=== PATIENT | female | born 2005 | race African-American/Black ===

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

== ENCOUNTER 2023-05-28 17:48 | Emergency (ER) | payer BC ==
--- NOTE | 2023-05-28 19:09 | EDPHYS ---
Physician Documentation [facility] Name: Seth Pino Age: 18 yrs Sex: Female : 2005 Arrival Date: 05/28/2023 Time: 17:48 Bed [id number] Private MD: ED Physician Kyaw Cruz HPI: 05/27 18:23 This 18 yrs old Black Female presents to ER via Ambulatory with complaints of High ms3 Blood Pressure, Headache. 18:23 18-year-old female with no past medical history presents to the emergency department ms3 for headache that has been ongoing for 2 weeks. Patient states she typically has headaches however they typically do not last this long. Patient rates her headache a 9/10 and states the pain was located in the frontal region and now is located in the back of her head. Patient denies fevers, chills, nausea, vomiting. Patient denies any alleviating or inciting factors. 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 - Social history:: Smoking status: Patient denies any tobacco usage or history of. ROS: 18:23 Constitutional: Negative for fever, and chills. Neck: Negative for injury, pain, and ms3 swelling, Cardiovascular: Negative for chest pain, and palpitations. Respiratory: Negative for shortness of breath, cough, wheezing, and pleuritic chest pain, Abdomen/GI: Negative for abdominal pain, nausea, vomiting, diarrhea, and constipation, MS/Extremity: Negative for injury and deformity, 18:23 Neuro: Positive for headache, Exam: 18:23 Constitutional: This is a well developed, well nourished patient who is awake, alert, ms3 and in no acute distress. Chest/axilla: Normal chest wall appearance and motion. Nontender with no deformity. Cardiovascular: Regular rate and rhythm with a normal S1 and S2. No gallops, murmurs, or rubs. Normal PMI, no JVD. No pulse deficits. Respiratory: Lungs have equal breath sounds bilaterally, clear to auscultation and percussion. No rales, rhonchi or wheezes noted. No increased work of breathing, no retractions or nasal flaring. Abdomen/GI: Soft, non-tender, with normal bowel sounds. No distension or tympany. No guarding or rebound. No evidence of tenderness throughout. Skin: Warm, dry with normal turgor. Normal color with no rashes, no lesions, and no evidence of cellulitis. 18:23 Neuro: Orientation: is normal, Mentation: is normal, Memory: is normal, Cranial nerves: CN I not tested, CN II- XII are normal as tested, Cerebellar function: is grossly normal, normal finger to nose testing, Motor: is normal, Sensation: is normal, no obvious gross deficits, Gait: is steady, at a normal pace, Vital Signs: 18:08 BP 115 / 74; Pulse 74; Resp 18 S; Temp 98.1(O); Pulse Ox 100% on R/A; Weight 54.43 kg as6 (R); Height 5 ft. 3 in. (R); Pain 9/10; 18:08 Body Mass Index 21.26 (54.43 kg, 160.02 cm) as6 18:08 Pain Scale: Adult as6 MDM: 18:35 Patient medically screened. ms3 19:09 Differential diagnosis: Tension POOLE. Data reviewed: vital signs, nurses notes, and as a ms3 result, I will discharge patient. I considered the following discharge prescriptions or medication management in the emergency department Patient left prior to receiving medications for headache. Counseling: I had a detailed discussion with the patient and/or guardian regarding. Counseling: I had a detailed discussion with the patient and/or guardian regarding the historical points, exam findings, and any diagnostic results supporting the discharge/admit diagnosis, Discussed treatment plan with patient. Patient left prior to receiving medications for headache. Administered Medications: 19:18 Not Given (Patient Refused): [id number] mg IVP once; over 1 to 2 minutes as6 19:18 Not Given (Patient Refused): [id number] mg IVP once as6 19:18 Not Given (Patient Refused): Decadron - [id number] mg IVP once as6 19:18 Not Given (Patient Refused): ns 0.9% 1000 ml IV at 1 bolus Per protocol; 1000 mL bolus as6 Disposition Summary: 05/28/23 19:08 Discharge Ordered Notes: Location: Home ms3 Condition: Stable ms3 Diagnosis - Headache ms3 Followup: ms3 - With: Errol Bazzi MD - When: 2 - 3 days - Reason: Recheck today's complaints Discharge Instructions: - Discharge Summary Sheet ms3 - General Headache Without Cause ms3 Forms: - Medication Reconciliation Form ms3 - Thank You Letter ms3 - Antibiotic Education ms3 - Prescription Opioid Use ms3 - Patient Portal Instructions ms3 - Leadership Thank You Letter ms3 Signatures: Kyaw Cruz DO DO ms3 Erik Christianson, RN RN as6
--- NOTE | 2023-05-28 19:09 | ER ---
Nurse's Notes [facility] Name: Seth Pino Age: 18 yrs Sex: Female : 2005 Arrival Date: 05/28/2023 Time: 17:48 Bed [id number] Private MD: Diagnosis: Headache Presentation: 05/27 18:09 Chief complaint: Patient states: headache x1 week and was worried that her blood as6 pressure was high. Coronavirus screen: At this time, the client does not indicate any symptoms associated with coronavirus-19. Ebola Screen: No symptoms or risks identified at this time. Initial Sepsis Screen: Does the patient meet any 2 criteria? No. Patient's initial sepsis screen is negative. Does the patient have a suspected source of infection? No. Patient's initial sepsis screen is negative. Risk Assessment: Do you want to hurt yourself or someone else? Patient reports no desire to harm self or others. Onset of symptoms was May 21, 2023. 18:09 Acuity: LOVELY 4 as6 18:09 Method Of Arrival: Ambulatory as6 Triage Assessment: 18:09 General: Appears in no apparent distress. Behavior is calm, cooperative. Pain: as6 Complains of pain in head. Neuro: Reports headache. 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 - Social history:: Smoking status: Patient denies any tobacco usage or history of. Screenin:18 [facility] ED Fall Risk Assessment (Adult) History of falling in the last 3 months, as6 including since admission No falls in past 3 months (0 pts) Confusion or Disorientation No (0 pts) Intoxicated or Sedated No (0 pts) Impaired Gait No (0 pts) Mobility Assist Device Used No (0 pt) Altered Elimination No (0 pt) Score/Fall Risk Level 0 - 2 = Low Risk Oriented to surroundings, Maintained a safe environment, Educated pt \T\ family on fall prevention, incl call for assistance when getting out of bed, Assessed \T\ reinforced patient's understanding of fall precautions, Hourly rounding (assess needs \T\ fall precautionary measures) done. Abuse screen: Denies threats or abuse. Denies injuries from another. Nutritional screening: No deficits noted. Tuberculosis screening: No symptoms or risk factors identified. Vital Signs: 18:08 BP 115 / 74; Pulse 74; Resp 18 S; Temp 98.1(O); Pulse Ox 100% on R/A; Weight 54.43 kg as6 (R); Height 5 ft. 3 in. (R); Pain 9/10; 18:08 Body Mass Index 21.26 (54.43 kg, 160.02 cm) as6 18:08 Pain Scale: Adult as6 ED Course: 17:51 Patient arrived in ED. im 17:53 Kyaw Cruz DO is Attending Physician. ms3 18:08 Arm band placed on. as6 18:10 Triage completed. as6 19:08 Errol Bazzi MD is Referral Physician. ms3 19:18 Patient has correct armband on for positive identification. Provided Education on: as6 parameters for normal BP. 19:19 Patient's name was called from ER lobby. No response. Unable to locate patient. Will as6 disposition as left without being seen by a provider. 19:19 No provider procedures requiring assistance completed. Patient did not have IV access as6 during this emergency room visit. Administered Medications: 19:18 Not Given (Patient Refused): [id number] mg IVP once; over 1 to 2 minutes as6 19:18 Not Given (Patient Refused): hvbbxnebveelswv45 mg IVP once as6 19:18 Not Given (Patient Refused): Decadron - [id number] mg IVP once as6 19:18 Not Given (Patient Refused): ns 0.9% 1000 ml IV at 1 bolus Per protocol; 1000 mL bolus as6 Medication: 19:18 VIS not applicable for this client. as6 Outcome: 19:08 Discharge ordered by . ms3 19:19 Discharged to home ambulatory, as6 19:19 Condition: stable 19:19 Discharge instructions given to pt left before receiving discharge paperwork 19:20 Patient left the ED. as6 Signatures: Kyaw Cruz DO DO ms3 Erik Christianson, RN RN as6 Leyla Ortega im
[2023-05-28 20:19] VITALS: BP 115/74; TEMP 98.1; O2SAT 100
== END 2023-05-28 19:20 | disposition home or self-care (01) ==
LOC: ER 17:48
DX: R51.9 Headache, unspecified (principal)
CPT/HCPCS: 99282

== ENCOUNTER 2023-08-02 18:46 | Emergency (ER) | payer BC, OTHER ==
[2023-08-02] MEDS ORDERED: ACETAMINOPHEN 500 MG TAB ONE (19:35)
[2023-08-02] MEDS ORDERED: NA CHLORIDE 0.9% 1,000 ML ONE (19:35)
[2023-08-02 19:56] LABS: Albumin 3.7 g/dL (3.4-5.0); Anion Gap 8.5 mEq/L (5.0-15.0); Bilirubin Total 0.2 mg/dL (0.2-1.0); Globulin 3.7 g/dL (2.3-3.5); Potassium 3.5 mEq/L (3.5-5.1); Protein, Total 7.4 g/dL (6.4-8.2)
[2023-08-02 20:12] LABS: Absolute Lymphocytes (CBC) 2.1 K/uL (0.7-4.9); Absolute Monocytes 0.3 K/uL (0.1-1.3); Absolute Neutrophil 3.2 K/uL (1.8-8.0); Basophils % 0.2 % (0-1.3); Eosinophils % 0.3 % (0-4.4); Hematocrit 30.9 % (36.0-45.0); Hemoglobin 10.3 g/dL (12.0-15.0); Lymphocytes % 37.8 % (15.3-44.8); MCH 30.6 pg (27.0-35.0); MCHC 33.1 g/dL (32.0-36.0); MCV 92.4 fL (80-100); MPV 7.7 fL (7.6-11.3); Monocytes % 5.6 % (3.3-12.3); Neutrophils % 56.1 % (41.7-73.7); Nucleated Red Blood Cells % 0.1 % (0-0); Platelets 328 thou/uL (152-406); RBC Red Blood Cell Count 3.35 M/uL (3.86-4.86); Red Cell Distribution Width 14.6 % (12.1-15.2)
--- NOTE | 2023-08-02 21:00 | RAD REPORT ---
EXAM DESCRIPTION: CT - Head Brain Wo Cont - 08/02/2023 8:23 pm CLINICAL HISTORY: Seizure COMPARISON: 2022 TECHNIQUE: Computed axial tomography of the head was obtained. IV contrast was not requested. All CT scans are performed using dose optimization technique as appropriate and may include automated exposure control or mA/KV adjustment according to patient size. FINDINGS: An intracranial bleed is not seen The ventricles are normal in caliber No significant hypodense areas within the brain visualized No extra-axial fluid collection is noted. Fluid within the sinuses/ mastoids is not seen IMPRESSION: No acute intracranial abnormality is seen If patient's symptoms persist MRI of the brain would be recommended
[2023-08-02 21:02] LABS: Specific Gravity 1.007 (1.005-1.030); Sqamous Epithelial <5 /HPF (None Seen); Urine Bacteria <20 /HPF (<20); Urine Bilirubin NEGATIVE (Negative); Urine Blood 2+ (Negative); Urine Clarity Clear (Clear); Urine Color Colorless (Yellow); Urine Crystals Unidentified Few /HPF (None Seen); Urine Culture Reflex Order NOT NEEDED; Urine Glucose NEGATIVE (Negative); Urine Ketones NEGATIVE (Negative); Urine Microscopic Reflex YN ORDER UMIC; Urine Nitrite NEGATIVE (Negative); Urine Protein NEGATIVE (Negative); Urine RBC <5 /HPF (None Seen); Urine Urobilinogen Normal (Normal); Urine WBC <5 /HPF (<5); Urine Yeast (Budding) Trace /HPF (None Seen); Urine pH 7.5 (5.0-7.0)
[2023-08-02 21:09] LABS: Barbiturates NEGATIVE (NEGATIVE); Benzodiazepines NEGATIVE (NEGATIVE); Cocaine NEGATIVE (NEGATIVE); METHAMPHETAM NEGATIVE (NEGATIVE); Methadone NEGATIVE (NEGATIVE); Opiates NEGATIVE (NEGATIVE); Phencyclidine NEGATIVE (NEGATIVE); THC Cannibis NEGATIVE (NEGATIVE)
--- NOTE | 2023-08-02 21:33 | ER ---
Nurse's Notes [facility] Name: Seth Pino Age: 18 yrs Sex: Female : 2005 Arrival Date: 08/02/2023 Time: 18:46 Bed 4 Private MD: Diagnosis: Other seizures Presentation: 08/01 18:49 Chief complaint: EMS states: toned out for seizure. Pt reports having headache today - ld1 hx of seizures, not medicated. Coronavirus screen: At this time, the client does not indicate any symptoms associated with coronavirus-19. Ebola Screen: No symptoms or risks identified at this time. Initial Sepsis Screen: Does the patient meet any 2 criteria? No. Patient's initial sepsis screen is negative. Does the patient have a suspected source of infection? No. Patient's initial sepsis screen is negative. Initial Sepsis Screen: Does the patient meet any 2 criteria?. Initial Sepsis Screen: Does the patient meet any 2 criteria?. Risk Assessment: Do you want to hurt yourself or someone else? Patient reports no desire to harm self or others. Onset of symptoms was August 02, 2023. 18:49 Method Of Arrival: EMS: [facility] ld1 18:49 Acuity: LOVELY 3 ld1 Triage Assessment: 18:50 General: Appears in no apparent distress. comfortable, Behavior is calm, cooperative, ld1 appropriate for age. Pain: Denies pain. EENT: No signs and/or symptoms were reported regarding the EENT system. Neuro: Level of Consciousness is awake, alert, obeys commands, Oriented to person, place, time, situation. Neuro:. Cardiovascular: Capillary refill < 3 seconds Patient's skin is warm and dry. Cardiovascular: Rhythm is sinus rhythm. Respiratory: Airway is patent Respiratory effort is even, unlabored. GI: Abdomen is flat, non-distended. : No signs and/or symptoms were reported regarding the genitourinary system. Derm: No signs and/or symptoms reported regarding the dermatologic system. Musculoskeletal: No signs and/or symptoms reported regarding the musculoskeletal system. 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 - Infectious Disease History:: Denies. - Social history:: Smoking status: Patient denies any tobacco usage or history of. Screenin:05 [facility] ED Fall Risk Assessment (Adult) History of falling in the last 3 months, km8 including since admission No falls in past 3 months (0 pts) Confusion or Disorientation No (0 pts) Intoxicated or Sedated No (0 pts) Impaired Gait No (0 pts) Mobility Assist Device Used No (0 pt) Altered Elimination No (0 pt) Score/Fall Risk Level 0 - 2 = Low Risk Oriented to surroundings, Maintained a safe environment, Educated pt \T\ family on fall prevention, incl call for assistance when getting out of bed, Assessed \T\ reinforced patient's understanding of fall precautions. Abuse screen: Denies threats or abuse. Denies injuries from another. Nutritional screening: No deficits noted. Tuberculosis screening: No symptoms or risk factors identified. Assessment: 19:05 Reassessment: Patient appears in no apparent distress at this time. Patient and/or 8 family updated on plan of care and expected duration. Pain level reassessed. Patient is alert, oriented x 3, equal unlabored respirations, skin warm/dry/pink. General: Appears in no apparent distress. comfortable, Behavior is calm, cooperative, appropriate for age. Pain: Complains of pain in head Pain currently is 6 out of 10 on a pain scale. Quality of pain is described as aching. Neuro: Level of Consciousness is awake, alert, obeys commands, Oriented to person, place, time, situation. Cardiovascular: Denies chest pain, shortness of breath, Patient's skin is warm and dry. Respiratory: Airway is patent Respiratory effort is even, unlabored, Respiratory pattern is regular, symmetrical. GI: No signs and/or symptoms were reported involving the gastrointestinal system. : No signs and/or symptoms were reported regarding the genitourinary system. EENT: No signs and/or symptoms were reported regarding the EENT system. Derm: No signs and/or symptoms reported regarding the dermatologic system. Skin is intact, is healthy with good turgor, Skin is dry, Skin is pink, warm \T\ dry. normal, Skin temperature is warm. Musculoskeletal: No signs and/or symptoms reported regarding the musculoskeletal system. Range of motion: intact in all extremities. 20:15 Reassessment: Patient appears in no apparent distress at this time. No changes from km8 previously documented assessment. Patient and/or family updated on plan of care and expected duration. Pain level reassessed. Patient is alert, oriented x 3, equal unlabored respirations, skin warm/dry/pink. 21:15 Reassessment: Patient appears in no apparent distress at this time. No changes from km8 previously documented assessment. Patient and/or family updated on plan of care and expected duration. Pain level reassessed. Patient is alert, oriented x 3, equal unlabored respirations, skin warm/dry/pink. Vital Signs: 18:49 BP 108 / 69; Pulse 97; Resp 18; Temp 97.9(TE); Pulse Ox 100% on R/A; Weight 58.06 kg; ld1 Height 5 ft. 4 in. ; Pain 0/10; 20:00 BP 96 / 61; Pulse 67; Resp 16; Pulse Ox 100% on R/A; km8 21:30 BP 108 / 76; Pulse 70; Resp 16; Pulse Ox 100% on R/A; km8 18:49 Body Mass Index 21.97 (58.06 kg, 162.56 cm) ld1 18:49 Pain Scale: Adult ld1 [place] Coma Score: 18:50 Eye Response: spontaneous(4). Motor Response: obeys commands(6). Verbal Response: ld1 oriented(5). Total: 15. 19:05 Eye Response: spontaneous(4). Motor Response: obeys commands(6). Verbal Response: km8 oriented(5). Total: 15. ED Course: 18:49 Patient arrived in ED. ld1 18:50 Triage completed. ld1 18:50 Arm band placed on right wrist. ld1 18:53 Lachelle Jackson FNP-C is [facility]. kb 18:53 Rajinder Durham MD is Attending Physician. kb 19:05 Patient has correct armband on for positive identification. Call light in reach. Side km8 rails up X2. Seizure precautions initiated. Provided Education on: call light use. Pulse ox on. NIBP on. Warm blanket given. 19:05 Initial lab(s) drawn, by me, sent to lab. Maintain EMS IV. Dressing intact. Good blood km8 return noted. Site clean \T\ dry. Gauge \T\ site: 18 gauge left AC. 19:09 Cal, So, RN is Primary Nurse. km8 19:34 CMP Sent. km8 19:34 Test, Serum Sent. km8 20:24 CT Head Brain wo Cont In Process Unspecified. EDMS 20:49 Test, Urine Sent. km8 20:49 Urinalysis w/ reflexes Sent. km8 20:49 Urine Drug Screen Sent. km8 20:49 Urine collected: clean catch specimen, clear. km8 21:46 No provider procedures requiring assistance completed. IV discontinued, intact, km8 bleeding controlled, No redness/swelling at site. Pressure dressing applied. Administered Medications: 19:39 Drug: NS 0.9% IV 1000 ml IV at 1000 ml once Route: IV; Rate: 1000 ml; Site: left [facility] antecubital; 21:46 Follow up: IV Status: Completed infusion; IV Intake: 1000ml km8 19:39 Drug: Acetaminophen PO 1000 mg PO once Route: PO; km8 21:46 Follow up: Response: No adverse reaction km8 Medication: 19:05 VIS not applicable for this client. km8 Intake: 21:46 IV: 1000ml; Total: 1000ml. km8 Outcome: 21:33 Discharge ordered by MD. thurman 21:53 Discharged to home ambulatory, with family, km8 21:53 Condition: good 21:53 Discharge instructions given to patient, family, Instructed on discharge instructions, follow up and referral plans. Demonstrated understanding of instructions, follow-up care, 21:53 Patient left the ED. km8 Signatures: Dispatcher [employer] EDLachelle Chu, MARIO GIANGP-Isaura Gaxiola RN RN ld1 So Mccall, RN RN km8
--- NOTE | 2023-08-02 21:33 | EDPHYS ---
Physician Documentation [facility] Name: Seth Pino Age: 18 yrs Sex: Female : 2005 Arrival Date: 08/02/2023 Time: 18:46 Bed 4 Private MD: ED Physician Rajinder Durham HPI: 08/02 00:39 This 18 yrs old Black Female presents to ER via EMS with complaints of Seizure. kb 00:39 Pt is a 18 year old female who presents after a seizure. Mother states pt was asking kb her to look at her phone and then she had a seizure that lasted a few seconds. EMS reports pt was postictle upon their arrival but has since returned to normal. Mother states pt had a previous seizure 6 months ago, but they did not follow up with neurology. HOME ADVISOR: 08/01 21:46 Not km8 Historical: - Allergies: 18:50 No Known Allergies; ld1 - PMHx: 18:50 Seizure; ld1 - Immunization history:: Adult Immunizations up to date. - Infectious Disease History:: Denies. - Social history:: Smoking status: Patient denies any tobacco usage or history of. ROS: 18:53 Constitutional: As per HPI kb Exam: 08/02 00:35 Constitutional: This is a well developed, well nourished patient who is awake, alert, kb and in no acute distress. Head/Face: Normocephalic, atraumatic. Eyes: Pupils equal round and reactive to light, extra-ocular motions intact. Lids and lashes normal. Conjunctiva and sclera are non-icteric and not injected. Cornea within normal limits. Periorbital areas with no swelling, redness, or edema. ENT: Moist Mucous membranes Cardiovascular: Regular rate Respiratory: Respirations even and unlabored. No increased work of breathing. Talking in full sentences Abdomen/GI: Soft, non-tender. No distention Skin: Warm, dry with normal turgor. Normal color. MS/ Extremity: Pulses equal, no cyanosis. Neurovascular intact. Full, normal range of motion. Neuro: Awake and alert, GCS 15, oriented to person, place, time, and situation. Moves all extremities. Normal gait. Vital Signs: 08/01 18:49 BP 108 / 69; Pulse 97; Resp 18; Temp 97.9(TE); Pulse Ox 100% on R/A; Weight 58.06 kg; ld1 Height 5 ft. 4 in. ; Pain 0/10; 20:00 BP 96 / 61; Pulse 67; Resp 16; Pulse Ox 100% on R/A; km8 21:30 BP 108 / 76; Pulse 70; Resp 16; Pulse Ox 100% on R/A; km8 18:49 Body Mass Index 21.97 (58.06 kg, 162.56 cm) ld1 18:49 Pain Scale: Adult ld1 [place] Coma Score: 18:50 Eye Response: spontaneous(4). Motor Response: obeys commands(6). Verbal Response: ld1 oriented(5). Total: 15. 19:05 Eye Response: spontaneous(4). Motor Response: obeys commands(6). Verbal Response: km8 oriented(5). Total: 15. MDM: 18:54 Patient medically screened. kb 08/02 00:35 Differential diagnosis: cardiac arrhythmia, seizure. Data reviewed: vital signs, nurses kb notes. Consideration of Admission/Observation Escalation of care including admission/observation considered. admission considered but pt is awake, alert and oriented x4 since arrival, has had no seizure activity. Pt and mother educated on diagnostic results and need for follow up with neurologist. Verbal understanding received. . Historians other than the Patient: EMS: [facility]. Parent: mother. Counseling: I had a detailed discussion with the patient and/or guardian regarding the historical points, exam findings, and any diagnostic results supporting the discharge/admit diagnosis, lab results, radiology results, the need for outpatient follow up, a neurologist, to return to the emergency department if symptoms worsen or persist or if there are any questions or concerns that arise at home. 08/01 18:54 Order name: CBC with Diff; Complete Time: 20:27 kb 08/01 18:54 Order name: CMP; Complete Time: 19:59 kb 08/01 18:54 Order name: Test, Urine; Complete Time: 21:13 kb 08/01 18:54 Order name: Urinalysis w/ reflexes; Complete Time: 21:13 kb 08/01 18:54 Order name: Urine Drug Screen; Complete Time: 21:13 kb 08/01 19:26 Order name: Test, Serum; Complete Time: 20:27 km8 08/01 18:54 Order name: CT Head Brain wo Cont; Complete Time: 21:13 kb 08/01 18:54 Order name: IV Start; Complete Time: 19:34 kb Administered Medications: 08/01 19:39 Drug: NS 0.9% IV 1000 ml IV at 1000 ml once Route: IV; Rate: 1000 ml; Site: left [facility] antecubital; 21:46 Follow up: IV Status: Completed infusion; IV Intake: 1000ml [facility] 19:39 Drug: Acetaminophen PO 1000 mg PO once Route: PO; [facility] 21:46 Follow up: Response: No adverse reaction [facility] Disposition Summary: 08/02/23 21:33 Discharge Ordered Notes: Dr Gill in [place]
Location: Home Condition: Stable kb Diagnosis - Other seizures kb Followup: kb - With: Emergency Department - When: As needed - Reason: Worsening of condition Followup: kb - With: Private Physician - When: 2 - 3 days - Reason: Recheck today's complaints, Continuance of care, Re-evaluation by your physician Discharge Instructions: - Discharge Summary Sheet kb - Seizure, Adult, [id number] kb Forms: - Medication Reconciliation Form kb - Antibiotic Education kb - Prescription Opioid Use kb - Patient Portal Instructions kb - Leadership Thank You Letter kb Signatures: Dispatcher [employer] EDLachelle Chu, FISHERIES DIRECTOR-C FISHERIES DIRECTOR-Isaura Gaxiola, RN RN ld1 So Mccall, RN RN km8 Corrections: (The following items were deleted from the chart) 18:54 18:54 CBC+H.LAB.BRZ ordered. EDMS EDMS 18:54 18:54 COMPREHENSIVE METABOLIC PANEL+C.LAB.BRZ ordered. EDMS EDMS 18:54 18:54 Test, Urine+UC.LAB.BRZ ordered. EDMS EDMS 18:54 18:54 Urinalysis+U.LAB.BRZ ordered. EDMS EDMS 18:54 18:54 URINE DRUG SCREEN+UC.LAB.BRZ ordered. EDMS EDMS
[2023-08-02 22:36] VITALS: BP 108/76; TEMP 97.9; O2SAT 100
== END 2023-08-02 21:53 | disposition home or self-care (01) ==
LOC: ER 18:46
DX: G40.89 Other seizures (principal)
CPT/HCPCS: 96361; 85025; 81001; 36415; 84703; 81025; 80053; 80307; 70450; 96360; 99284; J7030

== ENCOUNTER 2023-10-22 11:30 | Emergency (ER) | payer BC, OTHER ==
[2023-10-22] MEDS ORDERED: ACETAMINOPHEN 325 MG TABLET ONE (12:02)
[2023-10-22 12:08] LABS: Urine Bacteria <20 /HPF (<20); Urine Bilirubin NEGATIVE (Negative); Urine Blood 3+ (OVER) (Negative); Urine Clarity Extremely Turbid (Clear); Urine Color Light-Yellow (Yellow); Urine Culture Reflex Order NOT NEEDED; Urine Glucose NEGATIVE (Negative); Urine Ketones NEGATIVE (Negative); Urine Microscopic Reflex YN ORDER UMIC; Urine Mucus 3+ /HPF (None Seen); Urine Nitrite NEGATIVE (Negative); Urine Protein TRACE (Negative); Urine RBC >50 /HPF (None Seen); Urine Urobilinogen Normal (Normal); Urine WBC <5 /HPF (<5)
[2023-10-22 12:57] LABS: Absolute Lymphocytes (CBC) 1.7 K/uL (0.7-4.9); Absolute Monocytes 0.2 K/uL (0.1-1.3); Absolute Neutrophil 0.9 K/uL (1.8-8.0); Basophils % 0.6 % (0-1.3); Eosinophils % 1.1 % (0-4.4); Hematocrit 33.5 % (36.0-45.0); Lymphocytes % 59.2 % (15.3-44.8); MCHC 32.9 g/dL (32.0-36.0); MCV 94.2 fL (80-100); MPV 7.3 fL (7.6-11.3); Monocytes % 7.2 % (3.3-12.3); Neutrophils % 31.9 % (41.7-73.7); Platelets 310 thou/uL (152-406); RBC Red Blood Cell Count 3.55 M/uL (3.86-4.86); Red Cell Distribution Width 13.3 % (12.1-15.2)
--- NOTE | 2023-10-22 13:00 | RAD REPORT ---
EXAM DESCRIPTION: US - Transvaginal OB - 10/22/2023 12:50 pm CLINICAL HISTORY: ABD CRAMPING, COMPARISON: <Comparisons> FINDINGS: A single gestational sac is seen within the uterus. The shape of the sac is within normal limits for gestational age. Mean sac diameter is 3 mm correlating to 5 weeks 0 days gestational age. No yolk sac or embryo seen. The maternal adnexa and ovaries are within normal limits. Normal Doppler blood flow was demonstrated to both ovaries. IMPRESSION: Findings are most suggestive of early IUP. Recommend follow-up sonography in 7-10 days w ith serial HCG measurements.
[2023-10-22 13:14] LABS: Anion Gap 6.8 mEq/L (5.0-15.0); Potassium 3.8 mEq/L (3.5-5.1)
[2023-10-22 13:31] LABS: Blood Morphology Comment NOTED (NOT SEEN); Hypochromasia 1+; Platelet Estimate ADEQ; White Blood Cell Scan OK (OK)
--- NOTE | 2023-10-22 14:10 | EDPHYS ---
Physician Documentation [facility] Name: Seth Pino Age: 18 yrs Sex: Female : 2005 Arrival Date: 10/22/2023 Time: 11:30 Bed 19 Private MD: ED Physician Andrey Georges HPI: 10/21 11:45 This 18 yrs old Black Female presents to ER via Ambulatory with complaints of Vaginal cp Bleeding, + Preg <12wks - vaginal cramping. 11:45 The patient presents to the emergency department with abdominal pain, of the right cp lower quadrant and left lower quadrant, that started today, described as crampy, vaginal bleeding, that is light, with clots. 11:45 course: care: none. cp 11:45 Previous pregnancies: the patient has never been . 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 - Infectious Disease History:: Denies. - Social history:: Smoking status: Patient denies any tobacco usage or history of. ROS: 11:50 : Positive for vaginal bleeding, cp 11:50 Constitutional: Negative for body aches, chills, fever, poor PO intake, cp 11:50 Respiratory: Negative for cough, shortness of breath, wheezing, 11:50 Abdomen/GI: Positive for abdominal cramps, Negative for nausea, vomiting, diarrhea, constipation, Exam: 11:55 Constitutional: The patient appears in no acute distress, alert, awake, comfortable, cp non-toxic, well developed, well nourished, 11:55 Head/Face: Normocephalic, atraumatic. cp 11:55 Eyes: Periorbital structures: appear normal, Conjunctiva: normal, no exudate, no injection, Sclera: no appreciated abnormality, Lids and lashes: appear normal, bilaterally, 11:55 ENT: External ear(s): are unremarkable, Nose: is normal, Mouth: Lips: moist, Oral mucosa: pink and intact, moist, Posterior pharynx: is normal, airway is patent, no erythema, no exudate, 11:55 Chest/axilla: Inspection: 11:55 Cardiovascular: Rate: normal, Rhythm: regular, 11:55 Respiratory: the patient does not display signs of respiratory distress, Respirations: normal, no use of accessory muscles, no retractions, labored breathing, is not present, Breath sounds: are clear throughout, no decreased breath sounds, no stridor, no wheezing, 11:55 Abdomen/GI: Inspection: abdomen appears normal, Bowel sounds: active, all quadrants, Palpation: soft, in all quadrants, mild abdominal tenderness, in the right lower quadrant and left lower quadrant, rebound tenderness, is not appreciated, involuntary guarding, is not appreciated, 11:55 Back: CVA tenderness, is absent, Vital Signs: 11:41 BP 113 / 79; Pulse 70; Resp 16; Temp 97.9; Pulse Ox 100% on R/A; Weight 57.61 kg; ll1 Height 5 ft. 3 in. ; Pain 6/10; 14:20 BP 110 / 72; Pulse 70; Resp 15 S; Pulse Ox 99% on R/A; kc6 11:41 Body Mass Index 22.50 (57.61 kg, 160.02 cm) ll1 11:41 Pain Scale: Adult ll1 MDM: 11:36 Patient medically screened. cp 14:10 Data reviewed: vital signs, nurses notes, lab test result(s), radiologic studies, cp ultrasound. 14:10 Differential diagnosis: STD, ectopic . I considered the following discharge cp prescriptions or medication management in the emergency department Medications were administered in the Emergency Department. See MAR. Counseling: I had a detailed discussion with the patient and/or guardian regarding the historical points, exam findings, and any diagnostic results supporting the discharge/admit diagnosis, lab results, radiology results, the need for outpatient follow up, an OB/Gyne specialist, to return to the emergency department if symptoms worsen or persist or if there are any questions or concerns that arise at home. Response to treatment: the patient's symptoms have mildly improved after treatment, and as a result, I will discharge patient. 10/21 11:48 Order name: Abo/rh Typing; Complete Time: 13:59 cp 10/21 14:01 Interpretation: Reviewed. 10/21 11:48 Order name: Basic Metabolic Panel; Complete Time: 13:59 cp 10/21 13:59 Interpretation: Normal except: CL 108; CRE 0.50. 10/21 11:48 Order name: CBC with Diff; Complete Time: 13:59 cp 10/21 13:04 Interpretation: Normal except: WBC 2.90; RBC 3.55; HGB 11.0; HCT 33.5; MPV 7.3; [place]% cp 31.9; LYM% 59.2; NEUT A 0.9. 10/21 11:48 Order name: Test, Urine; Complete Time: 13:04 cp 10/21 11:48 Order name: Quantitative Hcg; Complete Time: 13:59 cp 10/21 14:00 Interpretation: HCGQ 725; Reviewed. 10/21 11:48 Order name: Urinalysis w/ reflexes; Complete Time: 13:04 cp 10/21 14:00 Interpretation: Normal except: [facility] Extremely Turbid; UBLD 3+ (OVER); UPROT TRACE; URBC cp >50; MUCUS 3+. 10/21 13:06 Order name: CBC Smear Scan; Complete Time: 13:59 EDMS 10/21 14:01 Interpretation: Reviewed. 10/21 11:48 Order name: US Transvaginal Ob; Complete Time: 13:04 10/21 14:03 Interpretation: Report reviewed. 10/21 11:48 Order name: IV Saline Lock; Complete Time: 12:48 cp 10/21 11:48 Order name: Labs collected and sent; Complete Time: 12:48 cp 10/21 11:48 Order name: NPO; Complete Time: 11:49 cp Administered Medications: 12:48 Drug: Acetaminophen PO 650 mg PO once Route: PO; kc6 Disposition Summary: 10/22/23 14:10 Discharge Ordered Notes: Location: Home cp Problem: new cp Symptoms: have improved cp Condition: Stable cp Diagnosis - Threatened cp Followup: cp - With: Private Physician - When: 48 Hours - Reason: Repeat Beta-HCG (48 Hours) Discharge Instructions: - Discharge Summary Sheet cp - Abdominal Pain During cp - Care cp - Threatened Miscarriage cp - Vaginal Bleeding During , First Trimester cp - Activity Restriction During cp Forms: - Medication Reconciliation Form cp - Antibiotic Education cp - Prescription Opioid Use cp - Patient Portal Instructions cp - Leadership Thank You Letter cp Prescriptions: - 95-iron [id number] - take 1 tablet ORAL route once daily; 60 tablet; Refills: 0, Product Selection cp Permitted Addendum: 11/02/2023 04:45 Co-signature as Attending Physician, Andrey Georges MD I agree with the assessment and c moore plan of care. Signatures: Dispatcher [employer] Andrey Wilhelm MD MD cha Page, Corey, PA PA Mark Walker RN RN ll1 Keely Perales RN RN kc6 Corrections: (The following items were deleted from the chart) 10/21 11:48 11:48 ABO/RH TYPING+BB.LAB.BRZ ordered. EDMS EDMS 11:48 11:48 BASIC METABOLIC PANEL+C.LAB.BRZ ordered. EDMS EDMS 11:48 11:48 CBC+H.LAB.BRZ ordered. EDMS EDMS 11:48 11:48 Test, Urine+UC.LAB.BRZ ordered. EDMS EDMS 11:48 11:48 QUANTITATIVE HCG+C.LAB.BRZ ordered. EDMS EDMS 11:48 11:48 Urinalysis+U.LAB.BRZ ordered. EDMS EDMS 11:48 11:48 Transvaginal Ob+US.RAD.BRZ ordered. EDMS EDMS
--- NOTE | 2023-10-22 14:10 | ER ---
Nurse's Notes [facility] Name: Seth Pino Age: 18 yrs Sex: Female : 2005 Arrival Date: 10/22/2023 Time: 11:30 Bed 19 Private MD: Diagnosis: Threatened Presentation: 10/21 11:41 Chief complaint: Patient states: G1, P0. Started vaginal bleeding yesterday, heavier ll1 today with small clots. About 3 weeks . Coronavirus screen: Client denies travel out of the [place] in the last 14 days. At this time, the client does not indicate any symptoms associated with coronavirus-19. Ebola Screen: Patient denies travel to an Ebola-affected area in the 21 days before illness onset. Initial Sepsis Screen: Does the patient meet any 2 criteria? No. Patient's initial sepsis screen is negative. Does the patient have a suspected source of infection? No. Patient's initial sepsis screen is negative. Risk Assessment: Do you want to hurt yourself or someone else? Patient reports no desire to harm self or others. Onset of symptoms was October 21, 2023. 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 - Infectious Disease History:: Denies. - Social history:: Smoking status: Patient denies any tobacco usage or history of. Screenin:45 [facility] ED Fall Risk Assessment (Adult) History of falling in the last 3 months, kc6 including since admission No falls in past 3 months (0 pts) Confusion or Disorientation No (0 pts) Intoxicated or Sedated No (0 pts) Impaired Gait No (0 pts) Mobility Assist Device Used No (0 pt) Altered Elimination No (0 pt) Score/Fall Risk Level 0 - 2 = Low Risk. Abuse screen: Denies threats or abuse. Denies injuries from another. Nutritional screening: No deficits noted. Tuberculosis screening: No symptoms or risk factors identified. Assessment: 11:45 General: Appears in no apparent distress. comfortable, well groomed, well developed, kc6 Behavior is calm, cooperative, appropriate for age. Pain: Complains of pain in left lower quadrant and right lower quadrant Quality of pain is described as crampy, dull. Neuro: Level of Consciousness is awake, alert, obeys commands, Oriented to person, place, time, situation, Appropriate for age. Cardiovascular: Capillary refill < 3 seconds. Respiratory: Airway is patent Trachea midline Respiratory effort is even, unlabored, Respiratory pattern is regular, symmetrical. GI: No signs and/or symptoms were reported involving the gastrointestinal system. : Urine is clear, Reports vaginal bleeding that is bright red, with clots, moderate flow, since yesterday. EENT: No signs and/or symptoms were reported regarding the EENT system. Derm: No signs and/or symptoms reported regarding the dermatologic system. Skin is intact, is healthy with good turgor, Skin is pink, warm \T\ dry. Musculoskeletal: No signs and/or symptoms reported regarding the musculoskeletal system. Circulation, motion, and sensation intact. Capillary refill < 3 seconds, Range of motion: intact in all extremities. 12:45 Reassessment: Patient appears in no apparent distress at this time. No changes from kc6 previously documented assessment. Patient and/or family updated on plan of care and expected duration. Pain level reassessed. Patient is alert, oriented x 3, equal unlabored respirations, skin warm/dry/pink. 13:34 Reassessment: Patient appears in no apparent distress at this time. No changes from kc6 previously documented assessment. Patient and/or family updated on plan of care and expected duration. Pain level reassessed. Patient is alert, oriented x 3, equal unlabored respirations, skin warm/dry/pink. 14:20 Reassessment: Patient appears in no apparent distress at this time. No changes from kc6 previously documented assessment. Patient and/or family updated on plan of care and expected duration. Pain level reassessed. Patient is alert, oriented x 3, equal unlabored respirations, skin warm/dry/pink. Patient states feeling better. Vital Signs: 11:41 BP 113 / 79; Pulse 70; Resp 16; Temp 97.9; Pulse Ox 100% on R/A; Weight 57.61 kg; ll1 Height 5 ft. 3 in. ; Pain 6/10; 14:20 BP 110 / 72; Pulse 70; Resp 15 S; Pulse Ox 99% on R/A; kc6 11:41 Body Mass Index 22.50 (57.61 kg, 160.02 cm) ll1 11:41 Pain Scale: Adult ll1 ED Course: 11:35 Patient arrived in ED. ra3 11:35 Andrey Ballesteros PA is PHCP. cp 11:35 Andrey Georges MD is Attending Physician. cp 11:36 Arm band placed on Patient placed in an exam room, on a stretcher. ll1 11:40 Keely Perales, SANDY is Primary Nurse. kc6 11:43 Triage completed. ll1 11:45 Patient has correct armband on for positive identification. Bed in low position. Call kc6 light in reach. Side rails up X 1. Pulse ox on. NIBP on. Door closed. Noise minimized. Lights dimmed. Pillow given. 12:48 Inserted saline lock: 20 gauge in right antecubital area, using aseptic technique. kc6 Blood collected. Flushed with 10 mL NS. 12:52 US Transvaginal Ob In Process Unspecified. EDMS 14:20 No provider procedures requiring assistance completed. IV discontinued, intact, kc6 bleeding controlled, No redness/swelling at site. Pressure dressing applied. Administered Medications: 12:48 Drug: Acetaminophen PO 650 mg PO once Route: PO; kc6 Medication: 14:21 VIS not applicable for this client. kc6 Outcome: 14:10 Discharge ordered by . cp 14:20 Discharged to home ambulatory, kc6 14:20 Condition: good 14:20 Discharge instructions given to patient, Instructed on discharge instructions, follow up and referral plans. medication usage, Demonstrated understanding of instructions, follow-up care, medications, Prescriptions given X 1, 14:21 Patient left the ED. kc6 Signatures: Dispatcher [employer] EDVA Andrey Ballesteros PA PA cp Lewis, Lynsay, RN RN ll1 Keely Perales RN RN kc6 Bernadette Frausto ra3
[2023-10-22 14:25] VITALS: TEMP 97.9
[2023-10-22 14:27] VITALS: BP 110/72; O2SAT 99
== END 2023-10-22 14:21 | disposition home or self-care (01) ==
LOC: ER 11:30
DX: O20.0 Threatened abortion (principal)
CPT/HCPCS: 36415; 76817; 80048; 81001; 81025; 84702; 85025; 86900; 86901; 99284

== ENCOUNTER 2023-10-22 21:53 | Emergency (ER) | payer BC, OTHER ==
--- NOTE | 2023-10-22 22:09 | ER ---
Nurse's Notes [facility] Name: Seth Pino Age: 18 yrs Sex: Female : 2005 Arrival Date: 10/22/2023 Time: 21:53 Bed IW1 Private MD: Diagnosis: Threatened ;Vaginal bleeding in , Spontaneous miscarriage Presentation: 10/21 22:00 Chief complaint: Patient states: Came earlier and they told me to come back if the pain vc1 gets worse. Coronavirus screen: Client denies travel out of the [place] in the last 14 days. At this time, the client does not indicate any symptoms associated with coronavirus-19. Ebola Screen: Patient negative for fever greater than or equal to 101.5 degrees Fahrenheit, and additional compatible Ebola Virus Disease symptoms Patient denies exposure to infectious person. Patient denies travel to an Ebola-affected area in the 21 days before illness onset. No symptoms or risks identified at this time. Initial Sepsis Screen: Does the patient meet any 2 criteria? No. Patient's initial sepsis screen is negative. Does the patient have a suspected source of infection? No. Patient's initial sepsis screen is negative. Risk Assessment: Do you want to hurt yourself or someone else? Patient reports no desire to harm self or others. Note 5 weeks and bleeding. Onset of symptoms was October 22, 2023. Care prior to arrival: None. Activity prior to arrival: None. Mechanism of Injury: No Mechanism of Injury. Transition of care: patient was not received from another setting of care. 22:00 Method Of Arrival: Ambulatory vc1 22:00 Acuity: LOVELY 4 vc1 Triage Assessment: 22:05 General: Behavior is. General: Appears in no apparent distress. comfortable, slender, vc1 Behavior is cooperative, crying. Pain: Complains of pain in left lower quadrant. EENT: No deficits noted. No signs and/or symptoms were reported regarding the EENT system. Neuro: Level of Consciousness is awake, alert, obeys commands, Oriented to person, place, time, situation, Appropriate for age. Cardiovascular: Capillary refill < 3 seconds Patient's skin is warm and dry. Respiratory: Airway is patent Respiratory effort is even, unlabored, Respiratory pattern is regular, symmetrical, Breath sounds are clear bilaterally. GI: Abdomen is flat, non-distended, Reports lower abdominal pain. : Reports vaginal bleeding that is heavy flow. Derm: Skin is intact, is healthy with good turgor, Skin is dry, Skin is normal, Skin temperature is warm. Musculoskeletal: No deficits noted. No signs and/or symptoms reported regarding the musculoskeletal system. 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 Screenin:04 [facility] ED Fall Risk Assessment (Adult) History of falling in the last 3 months, vc1 including since admission No falls in past 3 months (0 pts) Confusion or Disorientation No (0 pts) Intoxicated or Sedated No (0 pts) Impaired Gait No (0 pts) Mobility Assist Device Used No (0 pt) Altered Elimination No (0 pt) Score/Fall Risk Level 0 - 2 = Low Risk Oriented to surroundings, Maintained a safe environment, Educated pt \T\ family on fall prevention, incl call for assistance when getting out of bed. Abuse screen: Denies threats or abuse. Nutritional screening: No deficits noted. Tuberculosis screening: No symptoms or risk factors identified. Vital Signs: 22:00 BP 112 / 74; Pulse 84; Resp 16; Temp 97.4; Pulse Ox 100% ; Weight 57.61 kg; Height 5 vc1 ft. 3 in. ; 22:00 Body Mass Index 22.50 (57.61 kg, 160.02 cm) vc1 ED Course: 21:55 Patient arrived in ED. mr 21:56 Williams Cary MD is Attending Physician. sp4 22:02 Triage completed. vc1 22:05 Arm band placed on right wrist. vc1 22:11 Provided Education on: f/u in 2 days for repeat HCG. vc1 22:11 Patient has correct armband on for positive identification. Seen in triage. vc1 22:11 No provider procedures requiring assistance completed. Patient did not have IV access vc1 during this emergency room visit. Administered Medications: No medications were administered Medication: 22:05 VIS not applicable for this client. vc1 Outcome: 22:09 Discharge ordered by . sp4 22:11 Discharged to home ambulatory, vc1 22:11 Condition: good 22:11 Discharge instructions given to patient, Instructed on discharge instructions, follow up and referral plans. Demonstrated understanding of instructions, follow-up care, 22:12 Patient left the ED. vc1 Signatures: Robyn Vazquez Reg Reg mr Calcote, Vanessa, RN RN vc1 Williams Cary MD MD sp4
--- NOTE | 2023-10-22 22:09 | EDPHYS ---
Physician Documentation [facility] Name: Seth Pino Age: 18 yrs Sex: Female : 2005 Arrival Date: 10/22/2023 Time: 21:53 Bed IW1 Private MD: ED Physician Williams Cary HPI: 10/21 21:56 This 18 yrs old Black Female presents to ER via Unassigned with complaints of 5wks sp4 , Abdominal Pain. 10/22 07:57 18 year old female who is 7 weeks and 4 days EGA by LMP, presents with pelvic sp4 cramps and vaginal bleeding. Patient was here this morning and was diagnosed with threatened . Advised to get hCG level in 48 hours. Patient presents for persistent pelvic cramps and vaginal bleeding.. MANAGER ERP: 10/21 22:03 1, LMP 08/30/2023, Verified, EDC 06/05/2024, Gestational age from LMP: 7 vc1 weeks 5 days Historical: - Allergies: 22:02 No Known Allergies; vc1 - Home Meds: 22:02 None [Active]; vc1 - PMHx: 22:02 Seizure; vc1 - PSHx: 22:02 Unable to Obtain; vc1 - Family history:: not pertinent. ROS: 10/22 07:57 Constitutional: Negative for fever, chills, and weight loss, positive for left pelvic sp4 cramps and vaginal bleeding All other systems are negative, Exam: 07:57 Constitutional: This is a well developed, well nourished patient who is awake, alert, sp4 and in no acute distress. Head/Face: Normocephalic, atraumatic. Eyes: Pupils equal round and reactive to light, extra-ocular motions intact. Lids and lashes normal. Conjunctiva and sclera are not injected. Cornea within normal limits. Periorbital areas with no swelling, redness, or edema. ENT: Nares patent. No nasal discharge, no septal abnormalities noted. Tympanic membranes are normal and external auditory canals are clear. Oropharynx with no redness, swelling, or masses, exudates, or evidence of obstruction, uvula midline. Mucous membranes moist. Neck: Trachea midline, no thyromegaly or masses palpated, and no cervical lymphadenopathy. Supple, full range of motion without nuchal rigidity, or vertebral point tenderness. Chest/axilla: Normal chest wall appearance and motion. Nontender with no deformity. No lesions are appreciated. Cardiovascular: Regular rate and rhythm with a normal S1 and S2. No gallops, murmurs, or rubs. Normal PMI, no JVD. No pulse deficits. Respiratory: Lungs have equal breath sounds bilaterally, clear to auscultation and percussion. No rales, rhonchi or wheezes noted. No increased work of breathing, no retractions or nasal flaring. Abdomen/GI: Soft, with normal bowel sounds. No distension or tympany. No guarding or rebound. No evidence of tenderness throughout. Back: No spinal tenderness. No costovertebral tenderness. Skin: Warm, dry with normal turgor. Normal color with no rashes, no lesions, and no evidence of cellulitis. MS/ Extremity: Pulses equal, no cyanosis. Neurovascular intact. Full, normal range of motion. Neuro: Awake and alert, GCS 15, oriented to person, place, time, and situation. Cranial nerves II-XII grossly intact. Motor strength 5/5 in all extremities. Sensory grossly intact. Psych: Awake, alert, with orientation to person, place and time. Behavior, mood, and affect are within normal limits Vital Signs: 10/21 22:00 BP 112 / 74; Pulse 84; Resp 16; Temp 97.4; Pulse Ox 100% ; Weight 57.61 kg; Height 5 vc1 ft. 3 in. ; 22:00 Body Mass Index 22.50 (57.61 kg, 160.02 cm) vc1 MDM: 21:57 Patient medically screened. sp4 10/22 07:57 ED course: EXAM DESCRIPTION: US - Transvaginal OB - 10/22/2023 12:50 pm CLINICAL sp4 HISTORY: ABD CRAMPING, COMPARISON: FINDINGS: A single gestational sac is seen within the uterus. The shape of the sac is within normal limits for gestational age. Mean sac diameter is 3 mm correlating to 5 weeks 0 days gestational age. No yolk sac or embryo seen. The maternal adnexa and ovaries are within normal limits. Normal Doppler blood flow was demonstrated to both ovaries. IMPRESSION: Findings are most suggestive of early IUP. Recommend follow-up sonography in 7-10 days with serial HCG measurements. . 08:00 Differential Diagnosis Spontaneous Miscarriage . Data reviewed: vital signs, nurses sp4 notes, old medical records. ED course: Patient was advised to return in 48 hours for repeat hCG level or see MANAGER ERP physician for repeat ultrasound in 1 week. At this time based on patient's record from today she has signs of spontaneous miscarriage. Administered Medications: No medications were administered Disposition Summary: 10/22/23 22:09 Discharge Ordered Problem: new sp4 Symptoms: have improved sp4 Condition: Stable sp4 Diagnosis - Threatened sp4 - Vaginal bleeding in , Spontaneous miscarriage sp4 Followup: sp4 - With: Private Physician - When: 2 - 3 days - Reason: Recheck today's complaints Discharge Instructions: - Discharge Summary Sheet sp4 - Threatened Miscarriage sp4 Forms: - Patient Portal Instructions sp4 Signatures: Camila Carrasquillo RN RN vc1 Williams Cary MD MD sp4
[2023-10-22 22:16] VITALS: BP 112/74; TEMP 97.4; O2SAT 100
== END 2023-10-22 22:12 | disposition home or self-care (01) ==
LOC: ER 21:53
DX: O20.0 Threatened abortion (principal)
CPT/HCPCS: 99282

== ENCOUNTER 2023-10-23 04:09 | Emergency (ER) | payer BC, OTHER ==
[2023-10-23] MEDS ORDERED: ACETAMINOPHEN 500 MG TAB ONE (04:20)
--- NOTE | 2023-10-23 06:12 | ER ---
Nurse's Notes [facility] Name: Seth Pino Age: 18 yrs Sex: Female : 2005 Arrival Date: 10/23/2023 Time: 04:09 Bed 6 Private MD: Diagnosis: Incomplete spontaneous without complication Presentation: 10/22 04:12 Chief complaint: Patient states: i was here earlier to day and confirmed a , bm8 then I came back because I was having some spotting. Now i am passing some clots. Coronavirus screen: At this time, the client does not indicate any symptoms associated with coronavirus-19. Ebola Screen: Patient negative for fever greater than or equal to 101.5 degrees Fahrenheit, and additional compatible Ebola Virus Disease symptoms Patient denies exposure to infectious person. Patient denies travel to an Ebola-affected area in the 21 days before illness onset. No symptoms or risks identified at this time. Initial Sepsis Screen: Does the patient meet any 2 criteria? No. Patient's initial sepsis screen is negative. Does the patient have a suspected source of infection? No. Patient's initial sepsis screen is negative. Risk Assessment: Do you want to hurt yourself or someone else? Patient reports no desire to harm self or others. Onset of symptoms was October 22, 2023 at 10:00. 04:12 Method Of Arrival: EMS: [facility] bm8 04:12 Acuity: LOVELY 3 bm8 Triage Assessment: 04:16 General: Appears in no apparent distress. comfortable, Behavior is calm, cooperative, bm8 appropriate for age. Pain: Complains of pain in suprapubic area Pain does not radiate. Pain currently is 10 out of 10 on a pain scale. EENT: No deficits noted. No signs and/or symptoms were reported regarding the EENT system. Neuro: No deficits noted. Level of Consciousness is awake, alert, obeys commands, Oriented to person, place, time, situation, Appropriate for age. Cardiovascular: No deficits noted. Denies chest pain, Capillary refill < 3 seconds Patient's skin is warm and dry. Respiratory: Airway is patent Trachea midline Respiratory effort is even, unlabored, Respiratory pattern is regular, symmetrical. GI: pt is having uterine cramping and believes she is having a miscarriage. : No signs and/or symptoms were reported regarding the genitourinary system. Derm: No signs and/or symptoms reported regarding the dermatologic system. Musculoskeletal: No signs and/or symptoms reported regarding the musculoskeletal system. 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 - Infectious Disease History:: Denies. - Social history:: Smoking status: Patient denies any tobacco usage or history of. - Family history:: not pertinent. Screenin:33 [facility] ED Fall Risk Assessment (Adult) History of falling in the last 3 months, bm8 including since admission No falls in past 3 months (0 pts) Confusion or Disorientation No (0 pts) Intoxicated or Sedated No (0 pts) Impaired Gait No (0 pts) Mobility Assist Device Used No (0 pt) Altered Elimination No (0 pt) Score/Fall Risk Level 0 - 2 = Low Risk Oriented to surroundings, Maintained a safe environment, Educated pt \\T\\ family on fall prevention, incl call for assistance when getting out of bed, Assessed \\T\\ reinforced patient's understanding of fall precautions, Hourly rounding (assess needs \\T\\ fall precautionary measures) done, Used ambulatory aids as needed (educated on \\T\\ assisted with), Used gait belt as appropriate. Abuse screen: Denies threats or abuse. Nutritional screening: No deficits noted. Tuberculosis screening: No symptoms or risk factors identified. Assessment: 04:33 Reassessment: Patient appears in no apparent distress at this time. No changes from bm8 previously documented assessment. Patient and/or family updated on plan of care and expected duration. Pain level reassessed. pt went to restroom and believes she passed "the baby". 05:51 Reassessment: Patient appears in no apparent distress at this time. Patient and/or bm8 family updated on plan of care and expected duration. Pain level reassessed. Patient is alert, oriented x 3, equal unlabored respirations, skin warm/dry/pink. Patient states feeling better. Patient states symptoms have improved. Pain: Pain currently is 7 out of 10 on a pain scale. 06:20 GI: bm8 Vital Signs: 04:12 BP 117 / 76; Pulse 71; Resp 18; Temp 97.5; Pulse Ox 100% ; Weight 57.61 kg; Height 5 bm8 ft. 3 in. ; Pain 10/10; 05:51 BP 104 / 64; Pulse 72; Resp 17; Temp 97.5; Pulse Ox 100% ; Pain 7/10; bm8 04:12 Body Mass Index 22.50 (57.61 kg, 160.02 cm) bm8 04:12 Pain Scale: Adult bm8 05:51 Pain Scale: Adult bm8 Ludwig Coma Score: 05:51 Eye Response: spontaneous(4). Motor Response: obeys commands(6). Verbal Response: bm8 oriented(5). Total: 15. 06:13 Eye Response: spontaneous(4). Motor Response: obeys commands(6). Verbal Response: sp4 oriented(5). Total: 15. ED Course: 04:11 Patient arrived in ED. bm8 04:16 Triage completed. bm8 04:16 Williams Cary MD is Attending Physician. sp4 04:16 Arm band placed on right wrist. bm8 04:33 Patient has correct armband on for positive identification. Bed in low position. Call bm8 light in reach. Side rails up X 1. Adult w/ patient. Client placed on continuous cardiac and pulse oximetry monitoring. NIBP monitoring applied. Pulse ox on. NIBP on. Door closed. Noise minimized. Warm blanket given. Pillow given. Verbal reassurance given. Head of bed elevated. 04:33 No provider procedures requiring assistance completed. Inserted saline lock: 22 gauge bm8 in left antecubital area, using aseptic technique. Blood collected. Flushed with 10 mL NS IV discontinued, intact, bleeding controlled, No redness/swelling at site. Pressure dressing applied. 04:59 US OB Limited In Process Unspecified. EDMS 05:29 Robson Garsia, RN is Primary Nurse. bm8 06:20 Provided Education on: post er care, follow up with obgyn . bm8 Administered Medications: 04:33 Not Given (Patient Refused): [id number] mg PO once bm8 Medication: 04:33 VIS not applicable for this client. bm8 Outcome: 06:12 Discharge ordered by . sp4 06:20 Discharged to home ambulatory, bm8 06:20 Condition: stable 06:20 Discharge instructions given to patient, family, Instructed on discharge instructions, follow up and referral plans. medication usage, safety practices, Demonstrated understanding of instructions, follow-up care, medications, 06:21 Patient left the ED. bm8 Signatures: Dispatcher [employer] EDWilliams Lawrence MD MD sp4 Robson Garsia, RN RN bm8
--- NOTE | 2023-10-23 06:12 | EDPHYS ---
Physician Documentation [facility] Name: Seth Pino Age: 18 yrs Sex: Female : 2005 Arrival Date: 10/23/2023 Time: 04:09 Bed 6 Private MD: ED Physician Williams Cary HPI: 10/22 04:16 This 18 yrs old Black Female presents to ER via EMS with complaints of Abdominal sp4 Cramping. 06:13 18-year-old female EGA 7 weeks 5 days presents with pelvic cramping and vaginal sp4 bleeding. 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 - Infectious Disease History:: Denies. - Social history:: Smoking status: Patient denies any tobacco usage or history of. - Family history:: not pertinent. ROS: 06:13 Constitutional: Negative for fever, chills, and weight loss, Positive pelvic cramps sp4 and bleeding 06:13 All other systems are negative, Exam: 06:13 Constitutional: This is a well developed, well nourished patient who is awake, alert, sp4 and in no acute distress. Head/Face: Normocephalic, atraumatic. Eyes: Pupils equal round and reactive to light, extra-ocular motions intact. Lids and lashes normal. Conjunctiva and sclera are not injected. Cornea within normal limits. Periorbital areas with no swelling, redness, or edema. ENT: Nares patent. No nasal discharge, no septal abnormalities noted. Tympanic membranes are normal and external auditory canals are clear. Oropharynx with no redness, swelling, or masses, exudates, or evidence of obstruction, uvula midline. Mucous membranes moist. Neck: Trachea midline, no thyromegaly or masses palpated, and no cervical lymphadenopathy. Supple, full range of motion without nuchal rigidity, or vertebral point tenderness. Chest/axilla: Normal chest wall appearance and motion. Nontender with no deformity. No lesions are appreciated. Cardiovascular: Regular rate and rhythm with a normal S1 and S2. No gallops, murmurs, or rubs. Normal PMI, no JVD. No pulse deficits. Respiratory: Lungs have equal breath sounds bilaterally, clear to auscultation and percussion. No rales, rhonchi or wheezes noted. No increased work of breathing, no retractions or nasal flaring. Abdomen/GI: Soft, with normal bowel sounds. No distension or tympany. No guarding or rebound. No evidence of tenderness throughout. Back: No spinal tenderness. No costovertebral tenderness. Skin: Warm, dry with normal turgor. Normal color with no rashes, no lesions, and no evidence of cellulitis. MS/ Extremity: Pulses equal, no cyanosis. Neurovascular intact. Full, normal range of motion. Neuro: Awake and alert, GCS 15, oriented to person, place, time, and situation. Cranial nerves II-XII grossly intact. Motor strength 5/5 in all extremities. Sensory grossly intact. Psych: Awake, alert, with orientation to person, place and time. Behavior, mood, and affect are within normal limits Vital Signs: 04:12 BP 117 / 76; Pulse 71; Resp 18; Temp 97.5; Pulse Ox 100% ; Weight 57.61 kg; Height 5 bm8 ft. 3 in. ; Pain 10/10; 05:51 BP 104 / 64; Pulse 72; Resp 17; Temp 97.5; Pulse Ox 100% ; Pain 7/10; bm8 04:12 Body Mass Index 22.50 (57.61 kg, 160.02 cm) bm8 04:12 Pain Scale: Adult bm8 05:51 Pain Scale: Adult bm8 Ludwig Coma Score: 05:51 Eye Response: spontaneous(4). Motor Response: obeys commands(6). Verbal Response: bm8 oriented(5). Total: 15. 06:13 Eye Response: spontaneous(4). Motor Response: obeys commands(6). Verbal Response: sp4 oriented(5). Total: 15. MDM: 04:43 Patient medically screened. sp4 06:09 ED course: TECHNICAL DATA: Sonographic imaging of the pelvis was performed sp4 transvaginally on 10/23/2023 at 4:44 AM COMPARISONS: ultrasound report from 10/22/2023. The images were not available for review. FINDINGS: The uterus is normal in size and configuration and measures: 7.2 x 4.1 x 5.0 cm. The endometrial echo complex measures 0.9 cm in diameter. No definite intrauterine gestational sac is identified on this examination. There is increased echogenicity present within the endometrial canal in the lower uterine segment which may represent blood products. The right ovary is grossly normal in size, shape and echogenicity and measures: 2.7 x 1.7 x 3.5 cm. There is normal pulsed and color Doppler flow to the right ovary. There are no right adnexal mass lesions.. The left ovary is not identified on this examination. There are no left adnexal mass lesions.. There is a small volume of free fluid in the pelvis. IMPRESSION: 1. No evidence of an intrauterine gestational sac identified at this time suggesting interval spontaneous and/or in progress. There is increased echogenicity in the lower uterine segment possibly representing blood products. 2. Grossly normal sonographic evaluation of the right ovary. The left ovary is not identified on this examination. 3. Minimal free fluid in the posterior cul-de-sac. Electronically signed by: Adriana Araujo DO 10/23/2023 05:53 AM CDT. 06:15 Differential diagnosis: threatened Ab, inevitable Ab, ectopic . Data reviewed: sp4 vital signs, nurses notes, EMS record, lab test result(s), radiologic studies, ultrasound. Consideration of Admission/Observation Escalation of care including admission/observation considered. ED course: Ultrasound at this time reveals no intrauterine gestational sac suggesting interval spontaneous .. 10/22 04:17 Order name: HCG-Quantitative; Complete Time: 06:09 sp4 10/22 04:17 Order name: US OB Limited sp4 Administered Medications: 04:33 Not Given (Patient Refused): [id number] mg PO once bm8 Disposition Summary: 10/23/23 06:12 Discharge Ordered Notes: Pelvic rest for 2 weeks Location: Home sp4 Problem: new sp4 Symptoms: have improved sp4 Condition: Stable sp4 Diagnosis - Incomplete spontaneous without complication sp4 Followup: sp4 - With: Private Physician - When: 7 - 10 days - Reason: Recheck today's complaints Discharge Instructions: - Discharge Summary Sheet sp4 - Incomplete Miscarriage sp4 Forms: - Prescription Opioid Use sp4 Signatures: Dispatcher [employer] EDMS Potepalov, Williams, MD MD sp4 Robson Garsia, RN RN bm8
[2023-10-23 06:28] VITALS: TEMP 97.5; O2SAT 100
[2023-10-23 06:30] VITALS: BP 104/64
--- NOTE | 2023-10-24 13:06 | RAD REPORT ---
EXAM DESCRIPTION: US - OB Limited - 10/23/2023 4:58 am Ultrasound OB level one < than 14 weeks CLINICAL HISTORY: 18 years Female cramping and bleeding, LMP: 08/30/2023, EGA: 7 weeks, 5 days, LEEROY: TECHNIQUE: Sonographic imaging of the pelvis was performed transvaginally on 10/23/2023 at 4: 44 AM COMPARISONS: ultrasound report from 10/22/2023. The images were not available for review. FINDINGS: The uterus is normal in size and configuration and measures: 7.2 x 4.1 x 5.0 cm. The end ometrial echo complex measures 0.9 cm in diameter. No definite intrauterine gestational sac is identi fied on this examination. There is increased echogenicity present within the endometrial canal in the lower uterine segment which may represent blood products. The right ovary is grossly normal in size, shape and echogenicity and measures: 2.7 x 1.7 x 3.5 cm. There is normal pulsed and color Doppler flow to the right ovary. There are no right adnexal mass lesions.. The left ovary is not identified on this examination. There are no left adnexal mass lesions.. There is a small volume of free fluid in the pelvis. IMPRESSION: 1. No evidence of an intrauterine gestational sac identified at this time suggesting int erval spontaneous and/or in progress. There is increased echogenicity in the lower uterine segment possibly representing blood products. 2. Grossly normal sonographic evaluation of the right ovary. The left ovary is not identified on this examination. 3. Minimal free fluid in the posterior cul-de-sac. Electronically signed by: Adriana Araujo DO 10/23/2023 05:53 AM CDT Due to temporary technical issues with the PACS/Fluency reporting system, reports are being signed by the in house radiologist without review as a courtesy to ensure prompt reporting. The interpreting r adiologist is fully responsible for the content of the report.
== END 2023-10-23 06:21 | disposition home or self-care (01) ==
LOC: ER 04:09
DX: O03.4 Incomplete spontaneous abortion without complication (principal)
CPT/HCPCS: 36415; 76815; 84702; 99284

== ENCOUNTER 2023-11-02 00:20 | Emergency (ER) | payer OTHER ==
[2023-11-02] MEDS ORDERED: NA CHLORIDE 0.9% 1,000 ML ONE (01:39)
[2023-11-02 02:00] LABS: Specific Gravity 1.013 (1.005-1.030)
[2023-11-02 02:03] LABS: Specific Gravity 1.013 (1.005-1.030); Sqamous Epithelial <5 /HPF (None Seen); Urine Bacteria <20 /HPF (<20); Urine Bilirubin NEGATIVE (Negative); Urine Blood 2+ (Negative); Urine Clarity Extremely Turbid (Clear); Urine Color Light-Yellow (Yellow); Urine Culture Reflex Order REFLEXED; Urine Glucose NEGATIVE (Negative); Urine Ketones NEGATIVE (Negative); Urine Microscopic Reflex YN ORDER UMIC; Urine Mucus 1+ /HPF (None Seen); Urine Nitrite NEGATIVE (Negative); Urine Protein TRACE (Negative); Urine RBC 21-50 /HPF (None Seen); Urine Urobilinogen Normal (Normal); Urine WBC >50 /HPF (<5); Urine WBC Clump Rare /HPF (None Seen)
[2023-11-02] MEDS ORDERED: CEFTRIAXONE 1000 MG/VIAL ONE (02:19)
[2023-11-02] MEDS ORDERED: NA CHLORIDE 0.9% 50 ML ONE (02:20)
--- NOTE | 2023-11-02 02:26 | EDPHYS ---
Physician Documentation [facility] Name: Seth Pino Age: 18 yrs Sex: Female : 2005 Arrival Date: 11/02/2023 Time: 00:20 Bed 9 Private MD: BELINDA Physician Andrey Georges HPI: 11/01 01:50 This 18 yrs old Black Female presents to ER via Ambulatory with complaints of polina HEMATURIA, Urinary Incontinence. 01:50 The patient presents with urinary symptoms, frequency, hematuria, hesitancy, urgency. polina Onset: The symptoms/episode began/occurred 3 day(s) ago. Modifying factors: The symptoms are alleviated by nothing, the symptoms are aggravated by nothing. Associated signs and symptoms: The patient has no apparent associated signs or symptoms. Severity of symptoms: At their worst the symptoms were mild, moderate, in the emergency department the symptoms are unchanged. The patient is sexually active, reportedly has a single partner. Historical: - Allergies: 00:42 No Known Allergies; jb4 - PMHx: 00:42 Seizure; jb4 - PSHx: 00:42 None; jb4 - Immunization history:: Adult Immunizations not up to date. - Infectious Disease History:: Denies. - Social history:: Smoking status: Patient denies any tobacco usage or history of. - Family history:: not pertinent. ROS: 01:50 Constitutional: Negative for fever, chills, and weight loss, Eyes: Negative for injury, polina pain, redness, and discharge, ENT: Negative for injury, pain, and discharge, Neck: Negative for injury, pain, and swelling, Cardiovascular: Negative for chest pain, palpitations, and edema, Respiratory: Negative for shortness of breath, cough, wheezing, and pleuritic chest pain, Abdomen/GI: Negative for abdominal pain, nausea, vomiting, diarrhea, and constipation, Back: Negative for injury and pain, MS/Extremity: Negative for injury and deformity, Skin: Negative for injury, rash, and discoloration, Neuro: Negative for headache, weakness, numbness, tingling, and seizure, Psych: Negative for depression, anxiety, suicide ideation, homicidal ideation, and hallucinations, Allergy/Immunology: Negative for hives, rash, and allergies, Endocrine: Negative for neck swelling, polydipsia, polyuria, polyphagia, and marked weight changes, Hematologic/Lymphatic: Negative for swollen nodes, abnormal bleeding, and unusual bruising, 01:50 : Positive for urinary symptoms, urinary frequency, small amounts, hematuria, burning with urination, Exam: 01:50 Constitutional: This is a well developed, well nourished patient who is awake, alert, polina and in no acute distress. Head/Face: Normocephalic, atraumatic. Eyes: Pupils equal round and reactive to light, extra-ocular motions intact. Lids and lashes normal. Conjunctiva and sclera are non-icteric and not injected. Cornea within normal limits. Periorbital areas with no swelling, redness, or edema. ENT: Nares patent. No nasal discharge, no septal abnormalities noted. Tympanic membranes are normal and external auditory canals are clear. Oropharynx with no redness, swelling, or masses, exudates, or evidence of obstruction, uvula midline. Mucous membranes moist. Neck: Trachea midline, no thyromegaly or masses palpated, and no cervical lymphadenopathy. Supple, full range of motion without nuchal rigidity, or vertebral point tenderness. No Meningismus. Chest/axilla: Normal chest wall appearance and motion. Nontender with no deformity. No lesions are appreciated. Cardiovascular: Regular rate and rhythm with a normal S1 and S2. No gallops, murmurs, or rubs. Normal PMI, no JVD. No pulse deficits. Respiratory: Lungs have equal breath sounds bilaterally, clear to auscultation and percussion. No rales, rhonchi or wheezes noted. No increased work of breathing, no retractions or nasal flaring. Abdomen/GI: Soft, non-tender, with normal bowel sounds. No distension or tympany. No guarding or rebound. No evidence of tenderness throughout. Back: No spinal tenderness. No costovertebral tenderness. Full range of motion. Pelvic Exam: Normal external genitalia. Speculum exam with closed cervical os, no discharge or bleeding noted. Bimanual exam with normal adnexa, no adnexal or cervical motion tenderness. Normal uterus. Female : Normal external genitalia. Skin: Warm, dry with normal turgor. Normal color with no rashes, no lesions, and no evidence of cellulitis. MS/ Extremity: Pulses equal, no cyanosis. Neurovascular intact. Full, normal range of motion. Neuro: Awake and alert, GCS 15, oriented to person, place, time, and situation. Cranial nerves II-XII grossly intact. Motor strength 5/5 in all extremities. Sensory grossly intact. Cerebellar exam normal. Normal gait. Psych: Awake, alert, with orientation to person, place and time. Behavior, mood, and affect are within normal limits. 01:50 Musculoskeletal/extremity: DVT Exam: No signs of deep vein thrombosis. no pain, no swelling, no tenderness, negative Homans' sign noted on exam, no appreciated bluish discoloration, no erythema, no increased warmth, Vital Signs: 00:40 BP 127 / 77; Pulse 77; Resp 16; Temp 98.4(O); Pulse Ox 100% on R/A; Weight 57.15 kg jb4 (R); Height 5 ft. 3 in. (R); Pain 3/10; 00:40 Body Mass Index 22.32 (57.15 kg, 160.02 cm) jb4 00:40 Pain Scale: Adult jb4 MDM: 00:27 Patient medically screened. [facility] 01:51 Differential diagnosis: nonspecific abdominal pain, urinary tract infection. Data [facility] reviewed: vital signs, nurses notes, lab test result(s), radiologic studies, CT scan. Consideration of Admission/Observation Escalation of care including admission/observation considered. I considered the following discharge prescriptions or medication management in the emergency department Medications were administered in the Emergency Department. See MAR. Independent interpretation of the following test(s) in the Emergency Department CT Scan: My interpretation is ct abd pelvis. Test considered but Not performed: X-ray: no cxr. Historians other than the Patient: pt well informed. Care significantly affected by the following chronic conditions: seizures. Counseling: I had a detailed discussion with the patient and/or guardian regarding the historical points, exam findings, and any diagnostic results supporting the discharge/admit diagnosis, lab results, radiology results. 11/01 00:28 Order name: CBC with Diff; Complete Time: 03:54 [facility] 11/01 00:28 Order name: CMP; Complete Time: 03:54 [facility] 11/01 00:28 Order name: Lipase; Complete Time: 03:54 [facility] 11/01 00:28 Order name: Test, Urine; Complete Time: 02:26 [facility] 11/01 00:28 Order name: Urinalysis w/ reflexes; Complete Time: 02:43 [facility] 11/01 02:42 Order name: Urine Culture EDTX 11/01 00:28 Order name: CT Abd/Pelvis - IV Contrast Only [facility] 11/01 00:28 Order name: IV Saline Lock; Complete Time: 02:13 [facility] 11/01 00:28 Order name: Labs collected and sent; Complete Time: 02:13 polina Administered Medications: 02:13 Drug: NS 0.9% IV 1000 ml IV at 1 bolus Per protocol; 1000 mL bolus Route: IV; Rate: 1 pc2 bolus; Site: right antecubital; 02:28 Drug: Rocephin - Rocephin (cefTRIAXone) IVPB 1 grams IVPB once over 30 mins; (mix in 50 jb4 mL NS) Route: IVPB; Infused Over: 30 mins; Site: right antecubital; 02:48 Drug: Ciprofloxacin PO 500 mg PO once Route: PO; jb4 02:48 Drug: Phenazopyridine PO 200 mg PO once Route: PO; jb4 04:10 Drug: Trimethoprim-Sulfamethoxazole PO (160 mg-800 mg (DS) 1 tablet PO once Route: PO; jb4 Disposition Summary: 11/02/23 02:26 Discharge Ordered Notes: Location: Home [facility] Problem: new polina Symptoms: have worsened polina Condition: Stable polina Diagnosis - UTI/ Urinary tract infection, site not specified polina - Dysuria polina Followup: polina - With: Private Physician - When: 2 - 3 days - Reason: Recheck today's complaints, Continuance of care, Re-evaluation by your physician Discharge Instructions: - Discharge Summary Sheet polina - Dysuria polina - Urinary Tract Infection, Adult polina - Urinary Tract Infection, Adult, [id number] [facility] - Antibiotic Medicine, Adult, [id number] [facility] Forms: - Medication Reconciliation Form [facility] - Antibiotic Education [facility] - Prescription Opioid Use [facility] - Patient Portal Instructions [facility] - Leadership Thank You Letter [facility] Prescriptions: - Pyridium 200 mg Oral Tablet - take 1 tablet ORAL route every 8 hours for 3 days; 9 tablet; Refills: 0, [facility] Product Selection Permitted - Cipro 500 mg Oral Tablet - take 1 tablet ORAL route every 12 hours for 7 days; 14 tablet; Refills: 0, [facility] Product Selection Permitted - Bactrim DS 800-160 mg Oral tablet - take 1 tablet ORAL route every 12 hours for 5 days; 10 tablet; Refills: 0, [facility] Product Selection Permitted Signatures: Andrey Rivers MD MD cha Bryson, James, RN RN jb4 Vera Pereira, RN RN pc2
--- NOTE | 2023-11-02 02:26 | ER ---
Nurse's Notes [facility] Name: Seth Pino Age: 18 yrs Sex: Female : 2005 Arrival Date: 11/02/2023 Time: 00:20 Bed 9 Private MD: Diagnosis: UTI/ Urinary tract infection, site not specified;Dysuria Presentation: 11/01 00:40 Chief complaint: Patient states: I think I have a uti. I am having urinary frequency, jb4 blood in my urine, and pelvic pain. Coronavirus screen: At this time, the client does not indicate any symptoms associated with coronavirus-19. Ebola Screen: No symptoms or risks identified at this time. Initial Sepsis Screen: Does the patient meet any 2 criteria? No. Patient's initial sepsis screen is negative. Does the patient have a suspected source of infection? No. Patient's initial sepsis screen is negative. Risk Assessment: Do you want to hurt yourself or someone else? Patient reports no desire to harm self or others. Onset of symptoms was November 02, 2023. Transition of care: patient was not received from another setting of care. 00:40 Method Of Arrival: Ambulatory jb4 00:40 Acuity: LOVELY 4 jb4 Triage Assessment: 00:42 General: Appears in no apparent distress. comfortable, Behavior is calm, cooperative, jb4 appropriate for age. Pain: Complains of pain in suprapubic area Pain does not radiate. Pain currently is 3 out of 10 on a pain scale. Neuro: Level of Consciousness is awake, alert, obeys commands, Oriented to person, place, time, situation. Cardiovascular: Patient's skin is warm and dry. Respiratory: Airway is patent Respiratory effort is even, unlabored, Respiratory pattern is regular, symmetrical. : Reports burning with urination, incontinence, urgency, urinary frequency. Historical: - Allergies: 00:42 No Known Allergies; jb4 - PMHx: 00:42 Seizure; jb4 - PSHx: 00:42 None; jb4 - Immunization history:: Adult Immunizations not up to date. - Infectious Disease History:: Denies. - Social history:: Smoking status: Patient denies any tobacco usage or history of. - Family history:: not pertinent. Screenin:14 [facility] ED Fall Risk Assessment (Adult) History of falling in the last 3 months, jb4 including since admission No falls in past 3 months (0 pts) Confusion or Disorientation No (0 pts) Intoxicated or Sedated No (0 pts) Impaired Gait No (0 pts) Mobility Assist Device Used No (0 pt) Altered Elimination No (0 pt) Score/Fall Risk Level 0 - 2 = Low Risk Oriented to surroundings, Maintained a safe environment. Abuse screen: Denies threats or abuse. Nutritional screening: No deficits noted. Tuberculosis screening: No symptoms or risk factors identified. Assessment: 03:36 Reassessment: Patient appears in no apparent distress at this time. Patient and/or jb4 family updated on plan of care and expected duration. Pain level reassessed. Patient is alert, oriented x 3, equal unlabored respirations, skin warm/dry/pink. d/c pending CT results. 04:14 Reassessment: Patient appears in no apparent distress at this time. Patient and/or jb4 family updated on plan of care and expected duration. Pain level reassessed. Patient is alert, oriented x 3, equal unlabored respirations, skin warm/dry/pink. Vital Signs: 00:40 BP 127 / 77; Pulse 77; Resp 16; Temp 98.4(O); Pulse Ox 100% on R/A; Weight 57.15 kg jb4 (R); Height 5 ft. 3 in. (R); Pain 3/10; 00:40 Body Mass Index 22.32 (57.15 kg, 160.02 cm) jb4 00:40 Pain Scale: Adult jb4 ED Course: 00:23 Patient arrived in ED. jj6 00:27 Andrey Georges MD is Attending Physician. polina 00:41 Triage completed. jb4 00:42 Arm band placed on right wrist. jb4 02:13 CBC with Diff Sent. pc2 02:13 CMP Sent. pc2 02:13 Lipase Sent. pc2 03:01 CT Abd/Pelvis - IV Contrast Only In Process Unspecified. EDMS 04:11 Alvarez Connolly, RN is Primary Nurse. jb4 04:14 Patient has correct armband on for positive identification. Bed in low position. Call jb4 light in reach. Side rails up X 1. Provided Education on: discharge instructions. 04:14 No provider procedures requiring assistance completed. IV discontinued, intact, jb4 bleeding controlled, No redness/swelling at site. Pressure dressing applied. Administered Medications: 02:13 Drug: NS 0.9% IV 1000 ml IV at 1 bolus Per protocol; 1000 mL bolus Route: IV; Rate: 1 pc2 bolus; Site: right antecubital; 02:28 Drug: Rocephin - Rocephin (cefTRIAXone) IVPB 1 grams IVPB once over 30 mins; (mix in 50 jb4 mL NS) Route: IVPB; Infused Over: 30 mins; Site: right antecubital; 02:48 Drug: Ciprofloxacin PO 500 mg PO once Route: PO; jb4 02:48 Drug: Phenazopyridine PO 200 mg PO once Route: PO; jb4 04:10 Drug: Trimethoprim-Sulfamethoxazole PO (160 mg-800 mg (DS) 1 tablet PO once Route: PO; jb4 Outcome: 02:26 Discharge ordered by . polina 04:14 Discharged to home ambulatory, jb4 04:14 Condition: stable 04:14 Discharge instructions given to patient, Instructed on discharge instructions, follow up and referral plans. medication usage, Demonstrated understanding of instructions, follow-up care, medications, Prescriptions given X 3, 04:24 Patient left the ED. jb4 Addendum: 11/05/2023 07:21 Addendum: Culture Results: Positive urine culture. No further action required. Bacteria e b sensitive to prescribed antibiotic. Signatures: Dispatcher [employer] EDAndrey Sanchez MD MD cha Bryson, James, RN RN jb4 Tracy Pritchard Jennifer jj6 Vera Pereira, RN RN pc2
[2023-11-02] MEDS ORDERED: PHENAZOPYRIDINE 100MG TAB PO ONE (02:36)
[2023-11-02] MEDS ORDERED: CIPROFLOXACIN HCL 500 MG TAB ONE (02:36)
[2023-11-02 02:40] LABS: Absolute Lymphocytes (CBC) 2.2 K/uL (0.7-4.9); Absolute Monocytes 0.3 K/uL (0.1-1.3); Basophils % 0.4 % (0-1.3); Eosinophils % 0.6 % (0-4.4); Hematocrit 34.3 % (36.0-45.0); Hemoglobin 11.5 g/dL (12.0-15.0); Lymphocytes % 39.9 % (15.3-44.8); MCH 31.3 pg (27.0-35.0); MCHC 33.6 g/dL (32.0-36.0); MCV 93.1 fL (80-100); MPV 7.6 fL (7.6-11.3); Monocytes % 5.7 % (3.3-12.3); Neutrophils % 53.4 % (41.7-73.7); Nucleated Red Blood Cells % 0.1 % (0-0); Platelets 347 thou/uL (152-406); RBC Red Blood Cell Count 3.68 M/uL (3.86-4.86); Red Cell Distribution Width 13.4 % (12.1-15.2)
[2023-11-02 02:58] LABS: ALT/SGPT 18 U/L (13-56); AST/SGOT 16 U/L (15-37); Albumin 3.9 g/dL (3.4-5.0); Alkaline Phosphatase 74 U/L (45-117); Anion Gap 10.7 mEq/L (5.0-15.0); BUN Blood Urea Nitrogen 12 mg/dL (7-18); Bicarbonate 26 mEq/L (21-32); Bilirubin Total < 0.2 mg/dL (0.2-1.0); Globulin 3.8 g/dL (2.3-3.5); Glomerular Filtration Rate 135 ml/min (=/>90); Glucose Level 95 mg/dL (74-106); Lipase 42 U/L (13-75); Potassium 3.7 mEq/L (3.5-5.1); Protein, Total 7.7 g/dL (6.4-8.2); Sodium Level 140 mEq/L (136-145)
[2023-11-02] MEDS ORDERED: SMZ./TMP. 800/160 MG TABLET ONE (03:58)
[2023-11-02 05:01] VITALS: BP 127/77; TEMP 98.4; O2SAT 100
--- NOTE | 2023-11-02 15:47 | RAD REPORT ---
EXAM DESCRIPTION: CT Abdomen and Pelvis With Intravenous Contrast CLINICAL HISTORY: The patient is 18 years old and is Female; Abdomen pain. TECHNIQUE: Axial computed tomography images of the abdomen and pelvis with intravenous contrast. S agittal and coronal reformatted images were created and reviewed. This CT exam was performed using one or more of the following dose reduction techniques: automated exposure control, adjustment of t he mA and/or kV according to patient size, and/or use of iterative reconstruction technique. COMPARISON: CT Abdomen Pelvis 01/04/2022. FINDINGS: Lung bases: Unremarkable. No mass. No consolidation. ABDOMEN: Liver: Unremarkable. No mass. Gallbladder and bile ducts: Unremarkable. No calcified stones. No ductal dilation. Pancreas: No findings to suggest acute pancreatitis. No mass visualized. No ductal dilation. Spleen: Unremarkable. No splenomegaly. Adrenals: Unremarkable. No mass. Kidneys and ureters: Unremarkable. No solid mass. No hydronephrosis. Stomach and bowel: Scattered colonic diverticulosis. No bowel dilatation or obstruction. No bowel wall thickening. No gastric wall thickening. PELVIS: Appendix: The visualized appendix is normal. No pericecal inflammation to suggest acute appendici tis. Bladder: Mild mucosal enhancement in the bladder. Bladder is not well distended. No stones. Reproductive: Uterus is present. Ovaries are not well visualized. ABDOMEN and PELVIS: Intraperitoneal space: Unremarkable. No free air. No significant fluid collection. Bones/joints: No acute fracture. No dislocation. Soft tissues: Unremarkable. Vasculature: Unremarkable. No abdominal aortic aneurysm. Lymph nodes: No pathologically enlarged lymph nodes. IMPRESSION: 1. Mild mucosal enhancement in the bladder, raising suspicion for cystitis/UTI. 2. Scattered colonic diverticulosis. Electronically signed by: Mahsa Leone MD 11/02/2023 04:40 AM CDT [place] Due to temporary technical issues with the PACS/Fluency reporting system, reports are being signed by the in house radiologist without review as a courtesy to ensure prompt reporting. The interpreting r adiologist is fully responsible for the content of the report.
== END 2023-11-02 04:24 | disposition home or self-care (01) ==
LOC: ER 00:20
DX: N39.0 Urinary tract infection, site not specified (principal); R30.0 Dysuria
CPT/HCPCS: 87088; 85025; 81001; 87086; 36415; 81025; 87077; 87186; 83690; 80053; 74177; 96374; 99284; Q9967; J7030; J0696